=== PATIENT | male | born 1940 | race Caucasian/White ===

== ENCOUNTER 2022-01-29 06:20 | Inpatient (IN) | payer OTHER, MEDICARE ==
[2022-01-22 10:39] VITALS: BMI 24.3
[2022-01-29] MEDS ORDERED: MIDAZOLAM HCL 2 MG/2 ML SINGLE DOSE VIAL ONE (07:15)
[2022-01-29] MEDS ORDERED: PROPOFOL 20 ML ONE (07:15)
[2022-01-29] MEDS ORDERED: ceFAZolin SODIUM 1 GM VIAL ONE ×2 (07:16→09:38)
[2022-01-29] MEDS ORDERED: VANCOMYCIN 1,000 MG VIAL (RESTRICTED TO ID ONLY) ONE (07:16)
[2022-01-29] MEDS ORDERED: PHENYLEPHRINE HCL 10 MG/1 ML SINGLE DOSE VIAL ONE (07:17)
[2022-01-29] MEDS ORDERED: SUCCINYLCHOLINE CHLORIDE 200 MG/10 ML SYRINGE ONE (07:17)
[2022-01-29] MEDS ORDERED: ROPIVACAINE HCL 0.5% 30ML VIAL ONE (07:19)
[2022-01-29] MEDS ORDERED: BUPIVACAINE HCL 50 ML ONE (07:47)
[2022-01-29] MEDS ORDERED: CELECOXIB 200 MG CAPSULE PO ONE (08:00)
[2022-01-29] MEDS ORDERED: TRANEXAMIC ACID 1000 MG/10 ML VIAL IVPUSH ONE (08:00)
[2022-01-29] MEDS ORDERED: CEFAZOLIN 2 GM in DEXTROSE 5%-WATER - 50 ML IVPB ONE (08:00)
[2022-01-29] MEDS ORDERED: MAG HYDROX/AL HYDROX/SIMETH 30 ML UNIT-DOSE CUP PO PRN (08:06)
[2022-01-29] MEDS ORDERED: ONDANSETRON 4 MG/2 ML VIAL IVPUSH PRN ×2 (08:06→09:52)
[2022-01-29] MEDS ORDERED: LACTATED RINGERS SOLUTION 1,000 ML IV SCH (08:15)
[2022-01-29] MEDS ORDERED: ONDANSETRON 4 MG/2 ML VIAL ONE (09:38)
[2022-01-29] MEDS ORDERED: TRANEXAMIC ACID 1000 MG/10 ML VIAL ONE (09:38)
[2022-01-29] MEDS ORDERED: oxyCODONE HCL 5 MG TABLET PO PRN (09:59)
[2022-01-29] MEDS ORDERED: ACETAMINOPHEN 1000 MG/100 ML BAG IVPB ONE (09:59)
[2022-01-29] MEDS ORDERED: MULTIVITAMINS (DAILY MVI) TABLET (FP) PO SCH (10:00)
[2022-01-29] MEDS ORDERED: PANTOPRAZOLE 40 MG TABLET PO SCH (10:00)
[2022-01-29] MEDS ORDERED: IBRUTINIB 420 MG PO SCH (10:00)
[2022-01-29] MEDS: oxyCODONE HCL 5 MG TABLET PO PRN ×3 (14:15→20:25)
[2022-01-29] MEDS ORDERED: traMADol HCL 50 MG TABLET PO PRN (15:00)
[2022-01-29] MEDS ORDERED: CEFAZOLIN SODIUM 2 GM VIAL ONE (15:48)
[2022-01-29] MEDS ORDERED: DEXTROSE 5%-WATER 100 ML IVPB ONE ×2 (15:48→15:49)
[2022-01-29] MEDS: CEFAZOLIN SODIUM 2 GM in DEXTROSE 5%-WATER 100 ML IVPB SCH (16:01)
[2022-01-29] MEDS ORDERED: ZOLPIDEM TARTRATE 5 MG TABLET PO PRN (20:15)
[2022-01-29] MEDS: ACETAMINOPHEN 500 MG TABLET (FP) PO SCH (20:27)
[2022-01-29] MEDS: SENNOSIDES/DOCUSATE COMBO (SENNA PLUS) TABLET (UD) PO SCH (21:11)
[2022-01-29] MEDS ORDERED: ATORVASTATIN CA 10 MG TABLET (FP) PO SCH (22:00)
[2022-01-29] MEDS ORDERED: MELATONIN 5 MG TABLETS PO ONE (22:33)
[2022-01-30] MEDS: CEFAZOLIN SODIUM 2 GM in DEXTROSE 5%-WATER 100 ML IVPB SCH (00:19)
[2022-01-30] MEDS: ACETAMINOPHEN 500 MG TABLET (FP) PO SCH (05:38)
[2022-01-30] MEDS ORDERED: ASPIRIN 325 MG TABLET PO SCH (08:00)
[2022-01-30 08:12] LABS: HEMATOCRIT 36.4 % (35.4-49); HEMOGLOBIN 12.6 G/dL (11.7-16.9); MCH 30.7 pg (25.7-33.7); MCHC 34.7 g/dl (32.0-35.9); MEAN CELL VOLUME 88.4 fl (80-96); MEAN PLT VOLUME 7.9 fl (7.5-11.1); PLATELET COUNT 121.3 10^3/uL (134-434); RBC 4.12 10^6/uL (4.00-5.60); RDW 14.7 % (11.9-15.9); WHITE BLOOD COUNT 11.1 10^3/uL (4.0-10.8)
[2022-01-30] MEDS: oxyCODONE HCL 5 MG TABLET PO PRN (08:40)
[2022-01-30] MEDS: SENNOSIDES/DOCUSATE COMBO (SENNA PLUS) TABLET (UD) PO SCH (09:33)
[2022-01-30] MEDS ORDERED: FINASTERIDE 5 MG TABLET (FP) PO SCH (10:00)
[2022-01-30] MEDS ORDERED: LOSARTAN POTASSIUM 50 MG TABLET PO SCH (10:00)
[2022-01-30 12:10] VITALS: BP 108/52; PULSE 81; TEMP 98.7
== END 2022-01-30 16:01 | disposition home health service (06) | DRG 470 ==
LOC: FM/S 06:20
PROVIDERS: ADMIT Orthopaedic Surgery; ATTEND Orthopaedic Surgery
PROC: 8E0W0CZ Robotic Assisted Procedure of Trunk Region, Open Approach (ICD-10-PCS; 2022-01-29)
PROC: 0SR90JZ Replacement of Right Hip Joint with Synthetic Substitute, Open Approach (ICD-10-PCS; principal; 2022-01-29 08:34)
DX: M16.11 Unilateral primary osteoarthritis, right hip (principal); M25.551 Pain in right hip; I10 Essential (primary) hypertension; F03.90 Unspecified dementia, unspecified severity, without behavioral disturbance, psychotic disturbance, mood disturbance, and anxiety
CPT/HCPCS: 36415; 73502-TC-RT-FY; 85027; 88305-TC; 88311-TC; 94760; 97010-GP; 97116-GP; 97162-GP